=== PATIENT | male | born 2005 | race Two or more races ===

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

== ENCOUNTER 2023-09-02 08:59 | Emergency (ER) | payer OTHER, SELFPAY ==
[2023-09-02 09:31] VITALS: BP 136/83; PULSE 76; RESP 16; TEMP 36.6; O2SAT 100; BMI 31.9
--- NOTE | 2023-09-02 10:08 | ED_ITS ---
HPI - General Adult General Chief complaint: General Medical Stated complaint: Cyst (?) in mouth Time Seen by Provider: 09/02/23 09:46 Source: patient and family (Mother) Mode of arrival: ambulatory Limitations: no limitations History of Present Illness HPI narrative: 17-year-old male history of obesity, recurrent cyst presents with concerned he may have a cyst in his mouth and on his bottom, reports they have been there for few days worsening. Reports 4/10 pain. Reports the cyst on his bottom has been there in the past and it continues to come back despite surgeries, patient reports he has had it surgically removed and he feels like he might have to get this done again. Reports it has been actively draining. No fevers or chills. Lump and mouth just showed up a few days ago, not necessarily painful however he has not been eating on his right side because of it. This has never happened to him before. Denies fevers, chills, changes in voice, sore throat, difficulty swallowing, chest pain, shortness breath, headache, vision changes, dizziness and weakness Related Data Previous Rx's Medication Instructions Recorded cephalexin 500 mg capsule 500 mg PO QID 7 days #28 caps 10/30/22 doxycycline hyclate 100 mg tablet 100 mg PO BID 7 days #14 tabs 10/30/22 cephalexin 500 mg tablet 500 mg PO Q6H 10 days #40 tabs 09/02/23 doxycycline hyclate 100 mg capsule 100 mg PO BID 10 days #20 caps 09/02/23 Allergies Allergy/AdvReac Type Severity Reaction Status Date / Time No Known Allergies Allergy Verified 09/02/23 09:30 Review of Systems Review of Systems: Yes all other systems are reviewed and are negative [facility] Past Medical History Attestation statement: The following information was validated with the patient. Source: old records reviewed and nursing notes reviewed Social History Social History Advance Directives: No Advance Directives Information Provided: No Physical Exam ED Vital Signs: Vital Signs - 24 hr 09/02/23 09:31 Temperature 98 F Pulse Rate 76 Respiratory Rate 16 Blood Pressure 136/83 Pulse Oximetry 100 Oxygen Delivery Method Room Air BMI result Body Mass Index 31.9 vss Appearance: Alert.? Oriented X3.? No acute distress.? Head: Normocephalic, atraumatic, no step-offs or deformities Eyes: Pupils equal, round and reactive to light.? ENT: Pharynx normal.?+ small 2 mm lump to the right cheek near the gumline, with discrete edges, indurated without fluctuance or erythema Neck: Normal inspection.? Neck supple.? CVS: Normal heart rate and rhythm.? Pulses normal.? Respiratory: No respiratory distress.? Breath sounds normal.? Abdomen: Soft and nontender.? Skin: Skin warm and dry.? Normal skin color.? Normal skin turgor.?+ gluteal cleft region with a small 2 cm x 2 cm erythematous area, indurated, no fluctuance however appears to be draining. Extremities: No lower extremity edema.? No calf ttp. 5/5 strength to bilateral upper and lower extremities Back: No midline tenderness, no C-spine tenderness, full range of motion, no CVA tenderness bilaterally Neuro: Oriented X 3.? No motor deficit.? No sensory deficit. CN 2-12 intact Medical Decision Making Medical Decision Making MDM Narrative: 17-year-old male presents with question cyst in mouth and cyst on his bottom for the past few days worsening. Physical exam significant for mall 2 mm lump to the right cheek near the gumline, with discrete edges, indurated without fluctuance or erythema + gluteal cleft region with a small 2 cm x 2 cm erythematous area, indurated, no fluctuance however appears to be draining. History and physical exam concerning for small lump on the right cheek which could be a mucocele versus mechanical trauma to mouth. Less likely malignancy based off history and physical exam however will have him follow up with dentist if this does not resolve. There appears to be a developing pilonidal cyst, no signs of overlying cellulitis, actively draining. No signs of systemic illness Explained to patient that I could do an incision and drainage to drain the pilonidal cyst however patient would not like this, he says they usually have to get removed by surgery would rather follow-up with a surgeon. He would rather take antibiotics and warm water soaks. Gave him strict return precautions. Plan at this time will discharge patient home on doxycycline and Keflex. Advised him to follow-up with general surgery for pilonidal cyst and dentist for lump in mouth Differential Diagnosis Differential Diagnoses: The differential diagnosis associated with the presentation includes History and physical exam concerning for small lump on the right cheek which could be a mucocele versus mechanical trauma to mouth. Less likely malignancy based off history and physical exam however will have him follow up with dentist if this does not resolve. There appears to be a developing pilonidal cyst, no signs of overlying cellulitis, actively draining. No signs of systemic illness Admission/Observation Consideration of admission/observation: Escalation of care including admission/observation considered No indication Chronic Conditions Patient?s care impacted by: Other (Obesity, recurrent cysts) Discharge Plan Discharge Clinical Impression: Lump in mouth, Chronic recurrent pilonidal cyst Patient Disposition: Home, Self-Care Instructions: Pilonidal Cyst (ED), Pilonidal Cyst Excision (DC), Oral Lesion Excision (DC) Additional Instructions: Take your medications as prescribed. If you were prescribed antibiotics today, it is important that you take your medication to their entirety, do not skip any doses, do not finish them early. Follow-up with your primary care provider this week. Return to the emergency department with new or worsening symptoms. Such as fevers, chills, chest pain, shortness of breath, nausea, vomiting, dizziness, headache, vision changes, lethargy In case of emergency call 911 If you do have a dentist who can follow-up with the [facility] [phone] Surgeon information below for abscess/cyst Warm water soaks will help. 3-5 x a day Prescriptions: New doxycycline hyclate 100 mg capsule 100 mg PO BID 10 Days Qty: 20 0RF cephalexin 500 mg tablet 500 mg PO Q6H 10 Days Qty: 40 0RF No Action cephalexin 500 mg capsule 500 mg PO QID 7 Days Qty: 28 0RF doxycycline hyclate 100 mg tablet 100 mg PO BID 7 Days Qty: 14 0RF [place] [facility] [facility] [place]Provider Group] - 2 days Physician,None [Primary Care Provider] - 2 days
== END 2023-09-02 11:29 | disposition home or self-care (01) ==
PROVIDERS: Emergency Provider Emergency Medicine
DX: L05.91 Pilonidal cyst without abscess (principal); K09.8 Other cysts of oral region, not elsewhere classified
CPT/HCPCS: 99283